=== PATIENT | female | born 1950 | race Caucasian/White ===

== ENCOUNTER → 2016-08-16 | Outpatient (CLI) | payer BC ==
--- NOTE | 2016-08-17 13:54 | MM ---
Reason for exam: screening (asymptomatic). Last mammogram was performed 1 year and 6 months ago. History: Patient is postmenopausal. Excisional biopsy of the left breast, June 24, 2007. Cancelled Left Mammotome of the left breast, June 23, 2007. Excisional biopsy of the left breast. 5 excisional biopsies of the right breast. Took hormonal contraceptives for 5 years beginning at age 20. Physical Findings: A clinical breast exam by your physician is recommended on an annual basis and results should be correlated with mammographic findings. MG Screening Mammo w CAD Bilateral CC and MLO view(s) were taken. Prior study comparison: February 09, 2015, bilateral MG screening mammo w CAD. February 05, 2014, bilateral MG screening mammo w CAD. The breast tissue is heterogeneously dense. This may lower the sensitivity of mammography. Finding: There are typically benign round calcifications in both breasts. There is no discrete abnormality. ASSESSMENT: Benign, BI-RAD 2 RECOMMENDATION: Routine screening mammogram of both breasts in 1 year.
== END | disposition home or self-care (01) ==
LOC: RADMAMWWP 09:03
PROVIDERS: ATTEND Family Medicine
DX: Z12.31 Encounter for screening mammogram for malignant neoplasm of breast (principal)

== ENCOUNTER 2017-03-03 08:27 | Emergency (ER) | payer BC ==
[2017-03-03] MEDS ORDERED: LORazepam 1 MG TAB PO STA (08:57)
--- NOTE | 2017-03-03 09:11 | ED ---
General Adult HPI - General Chief complaint: Recheck/Abnormal Lab/Rx Stated complaint: concerned about low potassium Time Seen by Provider: 03/03/17 08:41 Source: patient, RN notes reviewed Mode of arrival: wheelchair Limitations: no limitations - History of Present Illness Initial comments: 66-year-old female presents emergency Department with multiple complaints. Patient states that she's been having ongoing issues with her body and skin. 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 Patient states that now her essential tremors in which she's had for over 15 years or more have been getting worse in which she's been dealing with her primary care physician for this. Patient states that she was on propranolol but they took her off it along with her Klonopin. She states that she's now been having worsening of her symptoms and increased anxiety. Patient states that they tried a new medication a few nights ago in which she had a reaction from this. She states that she felt "high", and then she had a sudden drop and feeling very low and depressed. Patient denies any suicidal or homicidal thoughts at that time or now. Patient states that she also was found to have a gluten intolerance and they believe this was causing her rash. She has been a gluten free diet states that the rash still continues on her right leg. She states her right leg is not swollen and slightly painful. Patient also believes that her potassium may be low causing all of her issues and is requesting her potassium to be checked. - Related Data Home Medications Medication Instructions Recorded Confirmed Propranolol LA [Inderal LA] 80 mg PO DAILY 01/13/16 01/13/16 clonazePAM [Clonazepam] 0.5 mg PO DAILY 01/13/16 01/13/16 Previous Rx's Medication Instructions Recorded HYDROcodone/APAP 5-325MG [Modena 1 tab PO Q6HR PRN #30 tab 01/13/16 5-325] Naproxen [Naprosyn] 500 mg PO Q12HR #60 tab 01/13/16 Tamsulosin HCl [Flomax] 0.4 mg PO DAILY #30 cap 01/13/16 Allergies Allergy/AdvReac Type Severity Reaction Status Date / Time No Known Allergies Allergy Verified 01/13/16 17:15 Review of Systems ROS Statement: Those systems with pertinent positive or pertinent negative responses have been documented in the HPI. ROS Other: All systems not noted in ROS Statement are negative. Past Medical History Past Medical History: Fibromyalgia Additional Past Medical History / Comment(s): ESSENTIAL TREMORS glutten intolerance History of Any Multi-Drug Resistant Organisms: None Reported Past Surgical History: Cholecystectomy, Tubal Ligation Additional Past Surgical History / Comment(s): LEFT LEG SURGERY Past Psychological History: Anxiety, Depression Smoking Status: Current every day smoker Past Alcohol Use History: None Reported, Rare Past Drug Use History: None Reported General Exam Limitations: no limitations General appearance: alert, in no apparent distress, anxious Head exam: Present: atraumatic, normocephalic, normal inspection Eye exam: Present: normal appearance, PERRL, EOMI. Absent: scleral icterus, conjunctival injection, periorbital swelling Neck exam: Present: normal inspection. Absent: tenderness, meningismus, lymphadenopathy Respiratory exam: Present: normal lung sounds bilaterally. Absent: respiratory distress, wheezes, rales, rhonchi, stridor Cardiovascular Exam: Present: regular rate, normal rhythm, normal heart sounds. Absent: systolic murmur, diastolic murmur, rubs, gallop, clicks GI/Abdominal exam: Present: soft, normal bowel sounds. Absent: distended, tenderness, guarding, rebound, rigid Extremities exam: Present: other (Right lower extremity there is erythematous scaly type skin noted extends from the right ankle to the right knee pedal pulses equal bilaterally). Absent: normal inspection (Patient has tremors) Neurological exam: Present: alert, oriented X3, CN II-XII intact Skin exam: Present: warm, dry, intact, normal color. Absent: rash Course Vital Signs 03/03/17 08:32 Temperature 99.3 F Pulse Rate 90 Respiratory 18 Rate Blood Pressure 147/100 O2 Sat by Pulse 100 Oximetry Medical Decision Making - Medical Decision Making 66-year-old male presented for multiple complaints. Patient's underlying issue is anxiety. Patient does feel better after Ativan. Patient was informed that her lab work was does not reveal any acute abnormality's. Patient ultrasound does not show any evidence of DVT. Patient has essential tremors well-known and under treatment, has dermatitis seen Dr. Kelly senior investigator for. Patient to underlying issues anxiety and she is advised to restart her Klonopin. - Lab Data Result diagrams: 03/03/17 09:10 03/03/17 09:10 Lab Results 03/03/17 03/03/17 Range/Units 09:10 09:10 WBC 5.0 (3.8-10.6) k/uL RBC 5.24 (3.80-5.40) m/uL Hgb 15.3 (11.4-16.0) gm/dL Hct 46.3 H (34.0-46.0) % MCV 88.3 (80.0-100.0) fL MCH 29.3 (25.0-35.0) pg MCHC 33.1 (31.0-37.0) g/dL RDW 14.4 (11.5-15.5) % Plt Count 289 (150-450) k/uL Neutrophils % 64 % Lymphocytes % 24 % Monocytes % 6 % Eosinophils % 3 % Basophils % 1 % Neutrophils # 3.2 (1.3-7.7) k/uL Lymphocytes # 1.2 (1.0-4.8) k/uL Monocytes # 0.3 (0-1.0) k/uL Eosinophils # 0.1 (0-0.7) k/uL Basophils # 0.1 (0-0.2) k/uL Sodium 144 (137-145) mmol/L Potassium 4.4 (3.5-5.1) mmol/L Chloride 109 H (98-107) mmol/L Carbon Dioxide 27 (22-30) mmol/L Anion Gap 8 mmol/L BUN 12 (7-17) mg/dL Creatinine 0.72 (0.52-1.04) mg/dL Est GFR (MDRD) Af Amer >60 (>60 ml/min/1.73 sqM) Est GFR (MDRD) Non-Af >60 (>60 ml/min/1.73 sqM) Glucose 106 H (74-99) mg/dL Calcium 9.7 (8.4-10.2) mg/dL Total Bilirubin 0.8 (0.2-1.3) mg/dL AST 28 (14-36) U/L ALT 35 (9-52) U/L Alkaline Phosphatase 75 (38-126) U/L Total Protein 7.0 (6.3-8.2) g/dL Albumin 4.3 (3.5-5.0) g/dL Disposition Clinical Impression: Dermatitis, Anxiety, Essential tremor Disposition: HOME SELF-CARE Condition: Stable Instructions: Generalized Anxiety Disorder (ED) Additional Instructions: Please return to the Emergency Department if symptoms worsen or any other concerns. Referrals: Zenon Guillen DO [Primary Care Provider] - 1-2 days Time of Disposition: 12:06
[2017-03-03 09:32] LABS: Basophils # (A) 0.1 k/uL (0-0.2); Basophils % (A) 1 %; CH 28.7; CHCM 32.7; Eosinophils # (A) 0.1 k/uL (0-0.7); Eosinophils % (A) 3 %; HCT 46.3 % (34.0-46.0); HDW 2.25; HGB 15.3 gm/dL (11.4-16.0); Luc % (Auto) 2; Lymphocytes # (A) 1.2 k/uL (1.0-4.8); Lymphocytes % (A) 24 %; MCH 29.3 pg (25.0-35.0); MCHC 33.1 g/dL (31.0-37.0); MCV 88.3 fL (80.0-100.0); Mean Platelet Volume 7.8; Monocytes # (A) 0.3 k/uL (0-1.0); Monocytes % (A) 6 %; Neutrophils # (A) 3.2 k/uL (1.3-7.7); Neutrophils % (A) 64 %; RBC 5.24 m/uL (3.80-5.40); RDW 14.4 % (11.5-15.5); WBC (Perox) 4.73
[2017-03-03 09:42] LABS: ALT 35 U/L (9-52); AST 28 U/L (14-36); Alkaline Phosphatase 75 U/L (38-126); Anion Gap 8 mmol/L; Blood Urea Nitrogen 12 mg/dL (7-17); Calcium 9.7 mg/dL (8.4-10.2); Carbon Dioxide 27 mmol/L (22-30); Chloride 109 mmol/L (98-107); Glucose 106 mg/dL (74-99); Non-African American GFR(MDRD) >60 (>60 ml/min/1.73 sqM); Potassium 4.4 mmol/L (3.5-5.1); Sodium 144 mmol/L (137-145); Total Bilirubin 0.8 mg/dL (0.2-1.3)
--- NOTE | 2017-03-03 11:31 | US ---
EXAMINATION TYPE: US venous doppler duplex LE RT DATE OF EXAM: 03/03/2017 9:11 AM COMPARISON: NONE CLINICAL HISTORY: Pain. Right leg pain and swelling SIDE PERFORMED: Right TECHNIQUE: The lower extremity deep venous system is examined utilizing real time linear array sonog cordell with graded compression, doppler sonography and color-flow sonography. VESSELS IMAGED: External Iliac Vein (EIV) Common Femoral Vein Deep Femoral Vein Greater Saphenous Vein * Femoral Vein Popliteal Vein Small Saphenous Vein * Proximal Calf Veins (* superficial vessels) Grayscale, color doppler, spectral doppler imaging performed of the deep veins of the lower extremity . There is normal flow, compressibility, vascular waveforms . Right Leg: Appears negative for DVT IMPRESSION: No evidence for DVT at this time.
[2017-03-03 12:10] VITALS: BP 139/65; PULSE 60; RESP 19; TEMP 98
== END 2017-03-03 12:15 | disposition home or self-care (01) ==
LOC: EC 08:27
DX: L30.9 Dermatitis, unspecified (principal); F41.9 Anxiety disorder, unspecified; M79.89 Other specified soft tissue disorders; R25.1 Tremor, unspecified; F17.200 Nicotine dependence, unspecified, uncomplicated; Z79.899 Other long term (current) drug therapy
CPT/HCPCS: 36415; 80053; 85025; 99283

== ENCOUNTER → 2017-03-05 | Outpatient (CLI) | payer BC ==
--- NOTE | 2017-03-05 11:41 | US ---
EXAMINATION TYPE: US thyroid st tissue head/neck DATE OF EXAM: 03/05/2017 COMPARISON: 01/14/2015. CLINICAL HISTORY: 66-year-old female E04.1 THYROID NODULE. TECHNIQUE: Multiple sonographic images of the thyroid gland are obtained. Findings GLAND SIZE: Right Lobe: 5.2 x 1.5 x 1.7 cm Left Lobe: 5.5 x 1.6 x 1.8 cm Isthmus Thickness: 0.2 cm Relatively homogeneous glandular parenchyma. NODULES RIGHT: # of nodules measured on right: 4 1. 0.4 X 0.3 x 0.3 cm hypoechoic solid nodule at the lower pole with well-defined margins; . This nodule is wider than tall and shows no intranodular vascularity. Prior size: 0.4 x 0.2 x 0.3 cm 2. 1.2 X 0.6 x 0.8 cm mixed solid cystic nodule at the mid pole with well-defined margins; . This n odule is wider than tall and shows intranodular vascularity. Prior size: 1.3 x 0.5 x 0.8 cm 3. 0.6 X 0.3 x 0.5 cm mixed, solid cystic, primarily cystic nodule at the mid pole with well-defined margins; . This nodule is wider than tall and shows no intranodular vascularity. Prior size: 0.6 x 0.4 x 0.5 cm 4. 0.4 X 0.3 x 0.3 cm isoechoic solid nodule at the upper pole. Margins are not well-defined. This n odule is wider than tall and shows intranodular vascularity. Prior size: 0.5 x 0.2 x 0.4 cm LEFT: # of nodules measured on left: 4 1. 0.7 X 0.6 x 0.5 cm heterogeneous, isoechoic nodule at the lower pole with poorly defined margins ; . This nodule is wider than tall and shows intranodular vascularity. Prior size: 0.8 x 0.4 x 0.8 cm 2. 0.9 X 0.4 x 0.6 cm cystic nodule with minimal internal complexity at the lower pole lowerwell-def inewell-defined . This ule is wider than wider than tallno intranodno intranodular vascularity size : 0.7 x 0.4 0.7.6 0.4 3. 0.6 X 0.5 0.7.9 0.5isoe0.9ic sisoechoiclsolidthe upper pole upperpoorly defipoorly defined . Th is ule is wider than wider than tallintranodulaintranodular vascularitysize: 0.9 x 0.4 0.9.9 0.4 4. 0.9 X 0.4 0.6.5 0.4heterogeneous solid nodule with internal calcifications and fluid well-defined margins at the upper pole. This nodule is wider than wider than tallintranodulaintranodular vascular itysize: not measured previously ISTHMUS: # of nodules measured in the isthmus: 0 Bila 0 l neck scanned, no evidence of lymphadenopathy. IMPRES N: 1. Findings suggest multinodular goiter. 2. A 6 mm solid nodule with calcifications in the left upper pole may be new from prior. 3. A 9 mm minimally complex cystic nodule in the left lower pole is slightly larger (previously measu ring 7 mm). 4. Additional nodules as outlined above (largest 1.2 cm) are largely unchanged.
== END | disposition home or self-care (01) ==
LOC: RADUSWWP 09:29
PROVIDERS: ATTEND Family Medicine
DX: E04.1 Nontoxic single thyroid nodule (principal)
CPT/HCPCS: 76536

== ENCOUNTER → 2017-11-07 | Outpatient (CLI) | payer BC ==
--- NOTE | 2017-11-07 14:08 | MM ---
Reason for exam: screening (asymptomatic). Last mammogram was performed 1 year and 3 months ago. History: Patient is postmenopausal. Excisional biopsy of the left breast, June 24, 2007. Cancelled Left Mammotome of the left breast, June 23, 2007. Excisional biopsy of the left breast. 5 excisional biopsies of the right breast. Took hormonal contraceptives for 5 years beginning at age 20. Physical Findings: A clinical breast exam by your physician is recommended on an annual basis and results should be correlated with mammographic findings. MG Screening Mammo w CAD Bilateral CC, MLO, and XCCL view(s) were taken. Prior study comparison: August 16, 2016, bilateral MG screening mammo w CAD. February 09, 2015, bilateral MG screening mammo w CAD. The breast tissue is heterogeneously dense. This may lower the sensitivity of mammography. Finding: There are typically benign vascular, round calcifications in both breasts. There is no discrete abnormality. ASSESSMENT: Benign, BI-RAD 2 RECOMMENDATION: Routine screening mammogram of both breasts in 1 year.
== END | disposition home or self-care (01) ==
LOC: RADMAMWWP 09:10
PROVIDERS: ATTEND Family Medicine
DX: Z12.31 Encounter for screening mammogram for malignant neoplasm of breast (principal)
CPT/HCPCS: 77067

== ENCOUNTER → 2018-05-14 | Outpatient (CLI) | payer BC ==
--- NOTE | 2018-05-14 13:04 | XR ---
EXAMINATION TYPE: XR chest 2V DATE OF EXAM: 05/14/2018 COMPARISON: None INDICATION: COPD, enlarged lymph nodes TECHNIQUE: Frontal and lateral views of the chest are obtained. FINDINGS: The heart size is normal. The pulmonary vasculature is normal. The lungs are clear. There is blunting the right costophrenic angle. Small posterior right pleural e ffusion is present. No suspicious soft tissue adenopathy is identified on the radiograph. CT would be more sensitive for additional evaluation. Aortopulmonic window and hilar regions appear normal. No s uspicious lung masses are identified. IMPRESSION: 1. Small right pleural effusion. 2. COPD
--- NOTE | 2018-05-14 13:05 | US ---
EXAMINATION TYPE: US soft tissue neck DATE OF EXAM: 05/14/2018 COMPARISON: NONE CLINICAL HISTORY: 67-year-old female R59.0 ENLARGED LYMPH NODES. Palpable area at left supraclavicula r region. Patient states that it can get bigger but currently it has decreased in size, recent head c old TECHNIQUE: Targeted ultrasound examination in the left supraclavicular region at the palpable site. FINDINGS: Tricot Knitter notes: 1.0 x 0.5 x 0.2cm lymph node with normal fatty hilum seen. No other abnormality noted. IMPRESSION: A prominent but nonenlarged 10 x 5 mm lymph node in the left supraclavicular region is not enlarged b y size criteria and is seen at the patient directed palpable site. Given the fluctuating size, consid er a reactive lymph node. If there is growth or the area is felt to be clinically suspicious, it can be reimaged.
== END | disposition home or self-care (01) ==
LOC: RADUSWWP 12:17
PROVIDERS: ATTEND Family Medicine
DX: R59.0 Localized enlarged lymph nodes (principal); J90 Pleural effusion, not elsewhere classified; J44.9 Chronic obstructive pulmonary disease, unspecified
CPT/HCPCS: 71046; 76536

== ENCOUNTER → 2018-06-09 | Outpatient (CLI) | payer BC ==
[2018-06-09 13:34] LABS: Blood Urea Nitrogen 18 mg/dL (7-17)
--- NOTE | 2018-06-09 15:55 | CT ---
EXAMINATION TYPE: CT chest w con DATE OF EXAM: 06/09/2018 COMPARISON: Radiograph 05/14/2018 HISTORY: 67-year-old female Follow up CXR per patient TECHNIQUE: Contiguous axial scanning of the chest after the administration of 100 mL of Isovue 300. Coronal/sagittal reconstructions performed. CT DLP: 271mGycm. Automatic exposure control utilized for a dose reduction. FINDINGS: Mild heterogeneity of the thyroid gland. Heart normal size without pericardial effusion. Aorta normal caliber with conventional arch vessel branching anatomy. No thoracic lymphadenopathy by CT size criteria. There is biapical pleural-parenchymal scarring. Scattered mild emphysematous change best seen on melissa nal series. 4 mm pulmonary nodule at the inferior lingula, axial image 39 and be reassessed in 1 year. No consolidation or pleural effusion. Incidental hypodense lesions within the liver compatible with cysts measuring up to 2.7 cm. Extrarenal pelvis on the right. Punctate 2 to 3 mm calculi are noted in both kidneys. Bones: No osseous destructive process. IMPRESSION: 1. COPD with mild emphysema. 2. A 4 mm inferior lingula lower pulmonary nodule. One-year follow-up recommended. 3. No acute pulmonary process. 4. Numerous punctate nonobstructive renal calculi partially visualized on both sides.
== END | disposition home or self-care (01) ==
LOC: RADCTMAIN 12:50
PROVIDERS: ATTEND Family Medicine
DX: R91.1 Solitary pulmonary nodule (principal); J43.9 Emphysema, unspecified
CPT/HCPCS: 82565; 84520; 71260; 36415; Q9967

== ENCOUNTER → 2019-03-12 | Outpatient (CLI) | payer BC ==
--- NOTE | 2019-03-16 09:36 | MM ---
Reason for exam: screening (asymptomatic). Last mammogram was performed 1 year and 4 months ago. History: Patient is postmenopausal. Excisional biopsy of the left breast, June 24, 2007. Cancelled Left Mammotome of the left breast, June 23, 2007. Excisional biopsy of the left breast. 5 excisional biopsies of the right breast. Took hormonal contraceptives for 5 years beginning at age 20. Physical Findings: A clinical breast exam by your physician is recommended on an annual basis and results should be correlated with mammographic findings. MG Screening Mammo w CAD Bilateral CC and MLO view(s) were taken. Prior study comparison: November 07, 2017, bilateral MG screening mammo w CAD. August 16, 2016, bilateral MG screening mammo w CAD. The breast tissue is heterogeneously dense. This may lower the sensitivity of mammography. No significant changes when compared with prior studies. ASSESSMENT: Benign, BI-RAD 2 RECOMMENDATION: Routine screening mammogram of both breasts in 1 year.
== END | disposition home or self-care (01) ==
LOC: RADMAMWWP 08:49
PROVIDERS: ATTEND Family Medicine
DX: Z12.31 Encounter for screening mammogram for malignant neoplasm of breast (principal)
CPT/HCPCS: 77067

== ENCOUNTER → 2019-06-08 | Outpatient (CLI) | payer BC ==
--- NOTE | 2019-06-08 12:53 | CT ---
EXAMINATION TYPE: CT chest wo con DATE OF EXAM: 06/08/2019 COMPARISON: 06/09/2018 HISTORY: Follow up nodule. CT DLP: 394 mGycm, Automated exposure control for dose reduction was used. CONTRAST: Performed injected with 0 mL of Isovue 300. TECHNIQUE: Axial images were obtained at 5 mm thick sections. Reconstructed images are reviewed on [employer] computer in the coronal plane. FINDINGS: Portion of the thyroid visualized is normal. No suspicious lung nodules or focal infiltrates are present. Previous nodule may be smaller order rem ains present. No enlargement is evident. No enlarged mediastinal or hilar adenopathy is evident. The ascending aorta diameter at the level o f the main pulmonary artery is 3.1 cm. The main pulmonary artery diameter at the bifurcation is 2.[address] sections are obtained through the upper abdomen. Possible calcified nonobstructing renal s tones are present bilaterally. The adrenal glands appear normal. Portions of the liver and spleen shira ear unremarkable. IMPRESSIONS: 1. No acute intrathoracic abnormality 2. Stable appearance of old left midlung nodule. 3. Nonobstructing bilateral renal stones.
== END | disposition home or self-care (01) ==
LOC: RADCTMAIN 11:53
PROVIDERS: ATTEND Family Medicine
DX: R91.1 Solitary pulmonary nodule (principal)
CPT/HCPCS: 71250

== ENCOUNTER → 2021-01-18 | Outpatient (CLI) | payer BC ==
--- NOTE | 2021-01-18 15:54 | CT ---
EXAMINATION TYPE: CT chest wo con DATE OF EXAM: 01/18/2021 COMPARISON: 06/08/2019, 06/09/2018 HISTORY: SPN CT DLP: 348 mGycm, Automated exposure control for dose reduction was used. CONTRAST: Performed injected with 0 mL of Isovue 300. TECHNIQUE: Axial images were obtained at 5 mm thick sections. Reconstructed images are reviewed on [employer] computer in the coronal plane. FINDINGS: Portion of the thyroid visualized is normal. There is a 0.3 cm nodule within the periphery of the left midlung. Series 4 image 38. This is stable from comparison. No enlarged mediastinal or hilar adenopathy is evident. The ascending aorta diameter at the level o f the main pulmonary artery is 0.1 cm. The main pulmonary artery diameter at the bifurcation is 2.[address] sections are obtained through the upper abdomen. Nonobstructing upper and mid pole left re nal stones are present IMPRESSIONS: 1. No suspicious acute changes CT chest 2. Note is made of nonobstructing left renal stones
== END | disposition home or self-care (01) ==
LOC: RADCTMAIN 09:19
PROVIDERS: ATTEND Family Medicine
DX: R91.1 Solitary pulmonary nodule (principal)
CPT/HCPCS: 71250

== ENCOUNTER → 2021-06-30 | Outpatient (CLI) | payer BC ==
--- NOTE | 2021-07-04 13:43 | MM ---
Reason for exam: screening (asymptomatic). Last mammogram was performed 2 years and 4 months ago. History: Patient is postmenopausal. Excisional biopsy of the left breast, June 24, 2007. Cancelled Left Mammotome of the left breast, June 23, 2007. Excisional biopsy of the left breast. 5 excisional biopsies of the right breast. Took hormonal contraceptives for 5 years beginning at age 20. Physical Findings: A clinical breast exam by your physician is recommended on an annual basis and results should be correlated with mammographic findings. MG Screening Mammo w CAD Bilateral CC and MLO view(s) were taken. Prior study comparison: March 12, 2019, bilateral MG screening mammo w CAD. November 07, 2017, bilateral MG screening mammo w CAD. The breast tissue is heterogeneously dense. This may lower the sensitivity of mammography. Areas of asymmetric denisty area unchanged. No significant changes when compared with prior studies. ASSESSMENT: Benign, BI-RAD 2 RECOMMENDATION: Routine screening mammogram of both breasts in 1 year. Patient should continue monthly self breast exams. A negative report should not preclude additional follow up of suspicious palpable abnormalities.
== END | disposition home or self-care (01) ==
LOC: RADMAMWWP 15:52
PROVIDERS: ATTEND Family Medicine
DX: Z12.31 Encounter for screening mammogram for malignant neoplasm of breast (principal); Z78.0 Asymptomatic menopausal state
CPT/HCPCS: 77067

== ENCOUNTER 2022-08-13 10:02 | Emergency (ER) | payer BC ==
[2022-08-13 10:11] VITALS: TEMP 98.7
--- NOTE | 2022-08-13 10:12 | ED ---
General Adult HPI - General Source: patient, RN notes reviewed Mode of arrival: ambulatory Limitations: no limitations <Tobi Wilkinson - Last Filed: 08/13/22 10:11> <Bishop Jimenez - Last Filed: 08/13/22 16:36> - General Stated complaint: UTI Time Seen by Provider: 08/13/22 10:06 - History of Present Illness Initial comments: 71-year-old female presents emergency Department with chief complaint of possible UTI. Patient states that she has lower abdominal pain and mild low back pain. Patient states that she's had urinary frequency dysuria. She does have a history kidney stones but this feels slightly different. Patient reports no fever she's been having ongoing nausea no acute changes. Patient denies chest pain shortness of breath. (Tobi Wilkinson) - Related Data Home Medications Medication Instructions Recorded Confirmed Propranolol LA [Inderal LA] 80 mg PO DAILY 01/13/16 01/13/16 clonazePAM [Clonazepam] 0.5 mg PO DAILY 01/13/16 01/13/16 Previous Rx's Medication Instructions Recorded HYDROcodone/APAP 5-325MG [Means 1 tab PO Q6HR PRN #30 tab 01/13/16 5-325] Naproxen [Naprosyn] 500 mg PO Q12HR #60 tab 01/13/16 Tamsulosin HCl [Flomax] 0.4 mg PO DAILY #30 cap 01/13/16 Sulfamethox-Tmp 800-160Mg [Bactrim 1 each PO Q12HR 5 Days #10 tab 08/13/22 Ds] Allergies Allergy/AdvReac Type Severity Reaction Status Date / Time No Known Allergies Allergy Verified 01/13/16 17:15 Review of Systems ROS Other: All systems not noted in ROS Statement are negative. <Tobi Wilkinson - Last Filed: 08/13/22 10:11> ROS Other: All systems not noted in ROS Statement are negative. <Bishop Jimenez - Last Filed: 08/13/22 16:36> ROS Statement: Those systems with pertinent positive or pertinent negative responses have been documented in the HPI. Past Medical History Past Medical History: Fibromyalgia Additional Past Medical History / Comment(s): ESSENTIAL TREMORS glutten intolerance History of Any Multi-Drug Resistant Organisms: None Reported Past Surgical History: Cholecystectomy, Tubal Ligation Additional Past Surgical History / Comment(s): LEFT LEG SURGERY Past Psychological History: Anxiety, Depression Smoking Status: Current every day smoker Past Alcohol Use History: None Reported, Rare Past Drug Use History: None Reported <Tobi Wilkinson M - Last Filed: 08/13/22 10:11> General Exam Limitations: no limitations <Tobi Wilkinson - Last Filed: 08/13/22 10:11> Limitations: no limitations General appearance: alert, in no apparent distress Head exam: Present: atraumatic Eye exam: Absent: scleral icterus, conjunctival injection Respiratory exam: Present: normal lung sounds bilaterally. Absent: respiratory distress, accessory muscle use Cardiovascular Exam: Present: regular rate GI/Abdominal exam: Present: soft. Absent: distended, rigid Extremities exam: Absent: pedal edema Back exam: Present: tenderness (low lumbar back pain). Absent: CVA tenderness (R), CVA tenderness (L), rash noted Neurological exam: Present: alert, oriented X3, other (Bilateral hand essential tremors) Psychiatric exam: Present: normal affect, normal mood Skin exam: Present: warm, dry. Absent: cyanosis, diaphoretic, petechiae, pallor <Bishop Jimenez - Last Filed: 08/13/22 16:36> Course Vital Signs 08/13/22 08/13/22 10:08 12:10 Temperature 98.7 F Pulse Rate 61 51 L Respiratory 20 18 Rate Blood Pressure 142/73 124/70 O2 Sat by Pulse 99 99 Oximetry Medical Decision Making <Bishop Jimenez - Last Filed: 08/13/22 16:36> - Medical Decision Making Patient denies any fevers, no nausea vomiting or diarrhea. Does complain of dysuria and burning. UA shows infection. Last urinary tract infection was in February treated with Bactrim with good results. Patient was prescribed Bactrim. Directed to follow-up with primary care doctor regarding complaints of essential tremor medication that she's been on for 3 weeks not improving her symptoms. Case discussed with Dr. Walton Was pt. sent in by a medical professional or institution? @No Did you speak to anyone other than the patient for history? @No Did you review nursing and triage notes? @Yes I agree Were old charts reviewed? @No Differential Diagnosis? @ UTI, gastroenteritis, constipation, inflammatory bowel, PID, kidney stone, placenta abruption... This is not meant to be an all-inclusive list EKG interpreted by me (3pts min.)? @ Not applicable X-rays interpreted by me (1pt min.)? @Not applicable CT interpreted by me (1pt min.)? @Not applicable U/S interpreted by me (1pt. min.)? @Not applicable What testing was considered but not performed? (CT, X-rays, U/S, labs)? Why? @CT was considered however patient will be diagnosed with urinary tract infection prescribed antibiotics if fever or vomiting or increased flank pain, What meds were considered but not given? Why? @no Did you discuss the management of the patient with other professionals? @No Did you reconcile home meds? @No Was smoking cessation discussed for >3mins.? @No Was critical care preformed (if so, how long)? @No Were there social determinants of health that impacted care today? How? (Homelessness, low income, unemployed, alcoholism, drug addiction, transportation, low edu. Level, literacy, decrease access to med. care, assisted, rehab)? @None Was there de-escalation of care discussed even if they declined? (Discuss DNR or withdrawal of care, Hospice)? @No What co-morbidities impacted this encounter? (DM, HTN, Smoking, COPD, CAD, Cancer, CVA, Hep., AIDS, mental health diagnosis, sleep apnea, morbid obesity)? @No Was patient admitted / discharged? @Discharged Undiagnosed new problem with uncertain prognosis? @ [none] Drug Therapy requiring intensive monitoring for toxicity (Heparin, Nitro, Insulin, Cardizem)? @None Were any procedures done? @None Diagnosis/symptom? @UTI Acute, or Chronic, or Acute on Chronic? @Acute Uncomplicated (without systemic symptoms) or Complicated (systemic symptoms)? @ [default] Side effects of treatment? @ [none] Exacerbation, Progression, or Severe Exacerbation] @ [no] Poses a threat to life or bodily function? @ [no] (Bishop Jimenez) - Lab Data Lab Results 08/13/22 Range/Units 10:15 Urine Color Colorless Urine Appearance Clear (Clear) Urine pH 6.0 (5.0-8.0) Ur Specific [place] 1.002 (1.001-1.035) Urine Protein Negative (Negative) Urine Glucose (UA) Negative (Negative) Urine Ketones Negative (Negative) Urine Blood Small H (Negative) Urine Nitrite Negative (Negative) Urine Bilirubin Negative (Negative) Urine Urobilinogen <2.0 (<2.0) mg/dL Ur Leukocyte Esterase Large H (Negative) Urine RBC 3 (0-5) /hpf Urine WBC 36 H (0-5) /hpf Urine WBC Clumps Rare H (None) /hpf Urine Bacteria Rare H (None) /hpf Urine Mucus Rare H (None) /hpf Disposition <Tobi Wilkinson - Last Filed: 08/13/22 10:11> Is patient prescribed a controlled substance at d/c from ED?: No Time of Disposition: 11:56 <Bishop Jimenez - Last Filed: 08/13/22 16:36> Clinical Impression: UTI (urinary tract infection) Disposition: HOME SELF-CARE Condition: Good Instructions (If sedation given, give patient instructions): Urinary Tract Infection in Women (ED) Additional Instructions: Increase your fluid intake. Take antibiotics as prescribed. Follow-up with the primary care doctor this week. Return to the emergency room with any new or concerning symptoms including nausea vomiting or fevers. Prescriptions: Sulfamethox-Tmp 800-160Mg [Bactrim Ds] 1 each PO Q12HR 5 Days #10 tab Referrals: Zenon Guillen DO [Primary Care Provider] - 1-2 days
[2022-08-13 10:50] LABS: Appearance,Urine Clear (Clear); Bacteria,Urine Rare /hpf; Bilirubin,Urine Negative (Negative); Blood,Urine Small (Negative); Color,Urine Colorless; Glucose,Urine (UA) Negative (Negative); Ketones,Urine Negative (Negative); Leukocyte Esterase,Urine Large (Negative); Mucus,Urine Rare /hpf; Nitrite,Urine Negative (Negative); Protein,Urine Negative (Negative); RBC,Urine 3 /hpf (0-5); Specific Gravity,Urine 1.002 (1.001-1.035); Urobilinogen,Urine <2.0 mg/dL (<2.0); WBC,Urine 36 /hpf (0-5)
[2022-08-13] MEDS ORDERED: SULFAMETHOX-TMP 800-160MG 1 EACH TAB PO STA (11:55)
[2022-08-13 12:12] VITALS: BP 124/70; PULSE 51; RESP 18
== END 2022-08-13 12:12 | disposition home or self-care (01) ==
LOC: EC 10:02
DX: N39.0 Urinary tract infection, site not specified (principal); F41.9 Anxiety disorder, unspecified; F32.A Depression, unspecified; F17.200 Nicotine dependence, unspecified, uncomplicated
CPT/HCPCS: 81001; 87086; 99283

== ENCOUNTER → 2022-09-04 | Outpatient (CLI) | payer BC ==
--- NOTE | 2022-09-05 09:48 | MM ---
Reason for Exam: Screening (asymptomatic). Last mammogram was performed 1 year(s) and 2 month(s) ago. Patient History: Menarche at age 14. First Full-Term at age 24. Postmenopausal. Patient has history of breast feeding. Hormonal Contraceptives for 5 years from age 20 until age 27. 06/24/2007, Excisional Biopsy on the Left side. Excisional Biopsy on the Right side. Excisional Biopsy on the Right side. Excisional Biopsy on the Right side. Excisional Biopsy on the Right side. Excisional Biopsy on the Right side. Excisional Biopsy on the Left side. 06/23/2007, Cancelled Left Mammotome on the left side. Risk Values: Evrna 5 year model risk: 2.3%. NCI Lifetime model risk: 7.1%. Prior Study Comparison: 02/09/2015 Bilateral Screening Mammogram, [facility]. 08/16/2016 Bilateral Screening Mammogram, [facility]. 11/07/2017 Bilateral Screening Mammogram, [facility] 03/12/2019 Bilateral Screening Mammogram, [facility]. 06/30/2021 Bilateral Screening Mammogram, [facility]. Tissue Density: The breast tissue is heterogeneously dense. This may lower the sensitivity of mammography. Findings: Analyzed By CAD. There is no suspicious group of microcalcifications or new suspicious mass in either breast. Overall Assessment: Benign, BI-RAD 2 Management: Screening Mammogram of both breasts in 1 year. A clinical breast exam by your physician is recommended on an annual basis and results should be correlated with mammographic findings. Electronically signed and approved by: Joey Rutherford D.O.
== END | disposition home or self-care (01) ==
LOC: RADMAMWWP 09:02
PROVIDERS: ATTEND Family Medicine
DX: Z12.31 Encounter for screening mammogram for malignant neoplasm of breast (principal); Z78.0 Asymptomatic menopausal state; Z98.890 Other specified postprocedural states
CPT/HCPCS: 77063; 77067

== ENCOUNTER → 2024-01-23 | Outpatient (CLI) | payer BC ==
--- NOTE | 2024-01-27 08:47 | MM ---
Reason for Exam: Screening (asymptomatic). Last mammogram was performed 1 year(s) and 5 month(s) ago. Patient History: Menarche at age 14. First Full-Term at age 24. Postmenopausal. Patient has history of breast feeding. Hormonal Contraceptives for 5 years from age 20 until age 27. 06/24/2007, Excisional Biopsy on the Left side. Excisional Biopsy on the Right side. Excisional Biopsy on the Right side. Excisional Biopsy on the Right side. Excisional Biopsy on the Right side. Excisional Biopsy on the Right side. Excisional Biopsy on the Left side. 06/23/2007, Cancelled Left Mammotome on the left side. Risk Values: Verna 5 year model risk: 2.3%. NCI Lifetime model risk: 6.4%. Prior Study Comparison: 03/12/2019 Bilateral Screening Mammogram, [facility]. 06/30/2021 Bilateral Screening Mammogram, [facility]. 09/04/2022 Bilateral MG 3D screening mammo w/cad, [facility]. Tissue Density: The breasts are heterogeneously dense, which may obscure small masses. Findings: Analyzed By CAD. Right breast: There is no suspicious group of microcalcifications or new suspicious mass. Left breast: There is no suspicious group of microcalcifications or new suspicious mass. Overall Assessment: Negative, BI-RAD 1 Management: Screening Mammogram of both breasts in [address] [facility] will attempt to contact patient to return for supplemental views and ultrasound if indicated. Patient should continue monthly self-breast exams. A clinical breast exam by your physician is recommended on an annual basis. This exam should not preclude additional follow-up of suspicious palpable abnormalities. Note on Verna scores and lifetime risk: 1. A Verna score greater than 3% is considered moderate risk. If this is the case, consider specialist referral to assess eligibility for a risk reducing agent. 2. If overall lifetime risk for the development of breast cancer is 20% or higher, the patient may qualify for future screening with alternating mammogram and breast MRI. Electronically signed and approved by: Pierre Molina DO
== END | disposition home or self-care (01) ==
LOC: RADMAMWWP 11:11
PROVIDERS: ATTEND Family Medicine
DX: Z12.31 Encounter for screening mammogram for malignant neoplasm of breast (principal); Z78.0 Asymptomatic menopausal state
CPT/HCPCS: 77063; 77067